=== PATIENT | male | born 1970 | race Caucasian/White ===

== ENCOUNTER 2017-10-24 22:45 | Emergency (ER) | payer BC, OTHER ==
[2017-10-24] MEDS ORDERED: METHYLPREDNISOLONE PF 125MG/VIAL IM ONE (23:09)
[2017-10-24] MEDS ORDERED: PROPARACAINE HCL OPTH 15ML BTL OPTH ONE (23:10)
--- NOTE | 2017-10-24 23:31 | Emergency Department Record ---
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 over the last 2 days he has been having burning of his eyes when he unloads trucks. he wears contacts. he took benadryl 50mg. MD Complaint: Allergic reaction, Other Onset/Timin -: Days(s) Exposure: Unknown Symptoms: Facial swelling Severity: Moderate Treatment Prior to Arrival: Benadryl Previous Allergy History: None - Related Data Home Medications Medication Instructions Recorded Confirmed Last Taken Amoxicillin 500 mg PO DAILY 10/24/17 10/24/17 10/24/17 Epinephrine 0.3 mg IJ ASDIR PRN 10/24/17 10/24/17 10/24/17 Ibuprofen [Ibu] 800 mg PO Q8H 10/24/17 10/24/17 10/24/17 Lisinopril 20 mg PO DAILY 10/24/17 10/24/17 10/24/17 Methadone HCl 10 mg PO TID 10/24/17 10/24/17 10/24/17 Previous Rx's Medication Instructions Recorded Prednisone [Prednisone 20Mg] 20 mg PO Q12HR #8 tab 10/24/17 Allergies Allergy/AdvReac Type Severity Reaction Status Date / Time bee venom protein (honey bee) Allergy ANAPHYLAXIS Verified 10/24/17 23:04 Travel Screening - Travel/Exposure Within Last 30 Days Have you traveled within the last 30 days?: No - Travel Symptoms Symptom Screening: None Review of Systems Reviewed: No additional complaints except as noted below Constitutional: Reports: As per HPI. Denies: Chills, Fever, Malaise, Night sweats, Weakness, Weight change Eyes: Reports: As per HPI, Eye pain. Denies: Eye discharge, Photophobia, Vision change ENT: Reports: As per HPI. Denies: Congestion, Dental pain, Ear pain, Epistaxis , Hearing loss, Throat pain Respiratory: Reports: As per HPI. Denies: Cough, Dyspnea, Hemoptysis, Stridor, Wheezes Cardiovascular: Reports: As per HPI. Denies: Arrhythmia, Chest pain, Dyspnea on exertion, Edema, Murmurs, Orthopnea, Palpitations, Paroxysmal nocturnal dyspnea, Rheumatic Fever, Syncope Endocrine: Reports: As per HPI. Denies: Fatigue, Heat or cold intolerance, Polydipsia, Polyuria Gastrointestinal: Reports: As per HPI. Denies: Abdominal pain, Constipation, Diarrhea, Hematemesis, Hematochezia, Melena, Nausea, Vomiting Genitourinary: Reports: As per HPI. Denies: Dysuria, Frequency, Hematuria, Incontinence, Retention, Testicular pain, Testicular mass, Urgency Musculoskeletal: Reports: As per HPI. Denies: Arthralgia, Back pain, Gout, Joint swelling, Myalgia, Neck pain Skin: Reports: As per HPI. Denies: Bruising, Change in color, Change in hair/ nails, Lesions, Pruritus, Rash Neurological: Reports: As per HPI. Denies: Abnormal gait, Confusion, Headache, Numbness, Paresthesias, Seizure, Tingling, Tremors, Vertigo, Weakness Psychiatric: Reports: As per HPI. Denies: Anxiety, Auditory hallucinations, Depression, Homicidal thoughts, Suicidal thoughts, Visual hallucinations Hematological/Lymphatic: Reports: As per HPI. Denies: Anemia, Blood Clots, Easy bleeding, Easy bruising, Swollen glands Past Medical History - SOCIAL HISTORY Smoking Status: Former smoker Alcohol Use: Rare Drug Use: None - RESPIRATORY Hx Respiratory Disorders: No - CARDIOVASCULAR Hx Cardio Disorders: No - NEURO Hx Neuro Disorders: No - GI Hx GI Disorders: No - Hx Genitourinary Disorders: No - ENDOCRINE Hx Endocrine Disorders: No - MUSCULOSKELETAL Hx Musculoskeletal Disorders: No - PSYCH Hx Psych Problems: No - HEMATOLOGY/ONCOLOGY Hx Hematology/Oncology Disorders: No Family Medical History Any Significant Family History?: Yes Hx Diabetes: Mother Hx Heart Disease: Grandparents Hx HTN: Father, Mother, Grandparents Physical Exam - General General Appearance: Alert, Oriented x3, Cooperative, Mild distress - Head Head exam: Normal inspection - Eye Eye exam: Normal appearance, PERRL, Conjunctival injection, EOMI, Other (no corneal abrasion. no fb) Pupils: Normal accommodation - ENT ENT exam: Normal exam, Mucous membranes moist, Normal external ear exam, Normal orophraynx, TM's normal bilaterally Ear exam: Normal external inspection. negative: External canal tenderness Nasal Exam: Normal inspection. negative: Discharge, Sinus tenderness Mouth exam: Normal external inspection, Tongue normal Teeth exam: Normal inspection. negative: Dental caries Throat exam: Normal inspection. negative: Tonsillar erythema, Tonsillar exudate - Neck Neck exam: Normal inspection, Full ROM. negative: Tenderness - Respiratory Respiratory exam: Normal lung sounds bilaterally. negative: Respiratory distress - Cardiovascular Cardiovascular Exam: Regular rate, Normal rhythm, Normal heart sounds - GI/Abdominal GI/Abdominal exam: Soft, Normal bowel sounds. negative: Tenderness - Rectal Rectal exam: Deferred - exam: Deferred - Extremities Extremities exam: Normal inspection, Full ROM, Normal capillary refill. negative: Tenderness - Back Back exam: Reports: Normal inspection, Full ROM. Denies: Muscle spasm, Rash noted, Tenderness - Neurological Neurological exam: Alert, CN II-XII intact, Normal gait, Oriented X3 - Psychiatric Psychiatric exam: Normal affect, Normal mood - Skin Skin exam: Dry, Intact, Normal color, Warm Course Vital Signs 10/24/17 22:52 Temperature 98.5 F Pulse Rate [ 91 H Pulse Ox Probe] Respiratory 20 Rate Blood Pressure 103/58 [Left Arm] Pulse Ox 96 Disposition Disposition: Discharge Clinical Impression: Eye irritation Disposition: Home, Self-Care Condition: (1) Good Instructions: Conjunctivitis (ED) Additional Instructions: do not wear contacts for 5 days. gentamicin 2 drops 4 times a day for 5 days. continue benadryl every 6 hours as needed. Prescriptions: Prednisone [Prednisone 20Mg] 20 mg PO Q12HR #8 tab Quality - Quality Measures Quality Measures: N/A - Blood Pressure Screening Does Patient Have Any of the Following: No Blood Pressure Classification: Normal BP Reading Systolic Measurement: 103 Diastolic Measurement: 58 Screening for High Blood Pressure: < Normal BP, F/U Not Required > [[id number]]
[2017-10-24] MEDS ORDERED: GENTAMICIN SULFATE 0.3% OPTH 5 ML BTL OPTH ONE (23:35)
== END 2017-10-24 23:49 | disposition home or self-care (01) ==
LOC: ER 22:45
DX: H57.13 Ocular pain, bilateral (principal); R22.0 Localized swelling, mass and lump, head; X58.XXXA Exposure to other specified factors, initial encounter; Z87.891 Personal history of nicotine dependence; Y99.0 Civilian activity done for income or pay
CPT/HCPCS: 96372; 99283; J2930